=== PATIENT | female | born 1955 | race Caucasian/White ===

== ENCOUNTER 2022-08-11 11:55 | Day surgery (SDC) | payer OTHER ==
[2022-08-08 11:51] VITALS: BMI 28.8
[2022-08-11] MEDS ORDERED: Famotidine/PF 20 mg/2ml Vial ONE (13:54)
[2022-08-11] MEDS ORDERED: fentaNYL 50 mcg/mL 1 mL Vial ONE (13:54)
[2022-08-11] MEDS ORDERED: Ondansetron PF 4 MG/2 ML Vial ONE ×2 (13:54→14:00)
[2022-08-11] MEDS ORDERED: PROPOFOL 200 MG/20 ML VIAL ONE (14:00)
[2022-08-11] MEDS ORDERED: Lidocaine 1% PF 5 ML VIAL ONE (14:00)
== END 2022-08-11 16:37 | disposition home or self-care (01) ==
LOC: MRI 11:55
PROVIDERS: ATTEND Neurological Surgery
DX: M47.812 Spondylosis without myelopathy or radiculopathy, cervical region (principal); M43.12 Spondylolisthesis, cervical region; M48.02 Spinal stenosis, cervical region; M50.321 Other cervical disc degeneration at C4-C5 level; M43.13 Spondylolisthesis, cervicothoracic region; F40.240 Claustrophobia; I10 Essential (primary) hypertension; Z79.1 Long term (current) use of non-steroidal anti-inflammatories (NSAID); Z79.82 Long term (current) use of aspirin; Z79.890 Hormone replacement therapy; Z79.899 Other long term (current) drug therapy
CPT/HCPCS: 72050; 72141; J2405; J2704; J3010; S0028